=== PATIENT | male | born 1990 | race Caucasian/White ===

== ENCOUNTER 2017-03-19 18:47 | Emergency (ER) | payer MEDICAID, SELFPAY | END 2017-03-19 20:27 | disposition home or self-care (01) | PROVIDERS: Emergency Provider Emergency Medicine; Visit Provider Emergency Medicine | DX: J20.9 Acute bronchitis, unspecified (principal); Z87.891 Personal history of nicotine dependence | CPT/HCPCS: 99282 ==

== ENCOUNTER → 2017-05-01 14:00 | Outpatient (REF) | payer MEDICAID, SELFPAY ==
[2017-05-01 18:33] LABS: Basophils # 0.1 K/mm3 (0-0.2); Basophils % 0.7 % (0.1-2.0); Eosinophils # 0.1 K/mm3 (0.0-0.4); Eosinophils % 0.7 % (0.1-12.0); Hematocrit 46.5 % (42.0-52.0); Hemoglobin 15.5 g/dL (14.1-18.0); Lymphocytes # 1.7 K/mm3 (0.7-4.5); Lymphocytes % 21.9 K/mm3 (10-50); Mean Corpuscular HGB Conc 33.3 g/dL (31.8-35.4); Mean Corpuscular Hemoglobin 30.3 pg (27.0-31.2); Mean Corpuscular Volume 90.9 fl (80-94); Mean Platelet Volume 9.3 fl (7.4-10.4); Monocytes # 0.5 K/mm3 (0.1-1.0); Monocytes % 6.3 % (1.7-9.3); Neutrophils # 5.5 K/mm3 (1.8-7.8); Neutrophils % 70.4 % (37.0-80.0); Platelet Count 269 K/mm3 (142-424); Red Blood Count 5.12 M/mm3 (4.60-6.20); Red Cell Distribution Width 12.9 % (11.5-17.5); White Blood Count 7.8 K/mm3 (4.8-10.8)
[2017-05-01 19:08] LABS: Alanine Aminotransferase 63 U/L (12-78); Albumin Level 4.1 gm/dL (3.4-5.0); Albumin/Globulin Ratio 1.2 (1.1-1.8); Alkaline Phosphatase 89 U/L (46-116); Anion Gap 14.3 mEq/L (5-15); Aspartate Amino Transferase 30 U/L (15-37); Bilirubin,Total 0.4 mg/dL (0.2-1.0); Blood Urea Nitrogen 14 mg/dL (7-18); Calcium 9.2 mg/dL (8.5-10.1); Carbon Dioxide 28 mmol/L (21.0-32.0); Chloride 103 mmol/L (98-107); Chol/HDL Ratio 4.6 (1-3.5); Cholesterol 197 mg/dL (140-200); Estimated Glomerular Filt Rate 92 ml/min (>60); GFR (African American) 111 ML/MIN (>60); Globulin 3.4 gm/dl (1.3-3.2); Glucose 102 mg/dL (74-106); HDL Cholesterol 43 mg/dL (27-67); LDL Cholesterol 96 mg/dL (0-130); Potassium 4.3 mmoL/L (3.5-5.1); Sodium 141 mmol/L (136-145); T4 (Thyroxine) 8.3 ug/dl (4.7-13.3); Thyroid Stimulating Hormone 0.91 uIU/ml (0.358-3.740); Total Protein,Serum 7.5 gm/dL (6.4-8.2); Triglycerides 289 mg/dL (30-200); VLDL Cholesterol 58 mg/dL (0-40)
[2017-05-03 18:28] LABS: Vitamin D 25 Hydroxy 33.8 ng/mL (30.0-100.0)
== END ==
LOC: LAB 14:00
PROVIDERS: Visit Provider Physician Assistant
DX: R68.89 Other general symptoms and signs (principal); E66.9 Obesity, unspecified; Z68.43 Body mass index [BMI] 50.0-59.9, adult
CPT/HCPCS: 80053; 80061; 82652; 84436; 84443; 85025

== ENCOUNTER → 2017-12-23 11:19 | Outpatient (CLI) | payer MEDICAID, SELFPAY ==
--- NOTE | 2017-12-23 11:22 | XR_ITS ---
XR hip RT 2-3V w/pelvis HISTORY: ITS.REASON: Right hip pain ORDERING PHYSICIAN: AUDREY Mohamud PATIENT AGE: 27 years COMPARISON: None FINDINGS: No fracture or dislocation is evident. No significant degenerative change. No lytic or blastic change. Unremarkable soft tissues IMPRESSION: Negative hip
== END ==
PROVIDERS: PCP Physician Assistant; Visit Provider Physician Assistant
DX: M25.551 Pain in right hip (principal)
CPT/HCPCS: 73502

== ENCOUNTER → 2018-03-24 13:53 | Outpatient (CLI) | payer MEDICAID, SELFPAY ==
--- NOTE | 2018-03-24 13:56 | XR_ITS ---
XR chest 2V HISTORY: ITS.REASON: wheezing ORDERING PHYSICIAN: Nikole Alcazar PATIENT AGE: 27 years Technique: PA and lateral chest 12 COMPARISON October 2017 2 view chest & 03-24 2 view chest. FINDINGS: No discrete acute findings. Today's chest film very similar to October 2017 . No convincing pneumonia. At most only question some slight additional vertical oriented atelectasis at the right infrahilar region which may slightly accentuated vascular markings here. However I see no convincing infiltrate. No focal pneumonia. The heart is normal in size with alex and mediastinal structures satisfactory. No no pleural effusion. No pneumothorax. Normal pulmonary vascularity. Chest wall T-spine intact. IMPRESSION:------ Nothing definitely acute. Basically stable chest.
== END ==
PROVIDERS: PCP Nurse Practitioner Family; Visit Provider Nurse Practitioner Family
DX: R05 Cough (principal); R06.2 Wheezing
CPT/HCPCS: 71046

== ENCOUNTER → 2018-11-26 11:19 | Outpatient (CLI) | payer SELFPAY | PROVIDERS: Visit Provider Nurse Practitioner Family | DX: Z02.4 Encounter for examination for driving license (principal) ==

== ENCOUNTER 2019-09-02 20:51 | Emergency (ER) | payer MEDICAID, SELFPAY ==
[2019-09-02 20:52] VITALS: BP 144/80; PULSE 88; RESP 16; TEMP 36.6; O2SAT 96; BMI 55.7
--- NOTE | 2019-09-02 21:20 | CT_ITS ---
PROCEDURE: CT ABDOMEN PELVIS W CON CLINICAL INDICATION: RUQ pain Right upper quadrant pain COMPARISON: No exams were available for comparison TECHNIQUE: IV Contrast: 75ML OPTIRAY 350 Oral Contrast none Axial images obtained with sagittal and coronal reformats. All CT scans at the facility use one or more dose reduction, viz: automated exposure control, ma/kV adjustment per patient size (including targeted exams where dose is matched to indication, i.e. head), or iterative reconstruction technique. FINDINGS: LOWER THORAX: There is a calcified granuloma in the right middle lobe. ABDOMEN & PELVIS: There is diffuse fatty liver infiltration. No focal liver lesion is evident. The spleen, adrenal glands, pancreas, and kidneys have an unremarkable appearance. There is a small umbilical hernia containing fat. No evidence of appendicitis or diverticulitis. No intestinal obstruction or free air. No pelvic mass or abnormal fluid collection. No acute bony anomalies. IMPRESSION: No acute abdominal or pelvic findings Dictated by: Manoj Medina MD 09/03/2019 06:20 Electronically signed by Manoj Medina MD in [place] 09/03/2019 06:20
--- NOTE | 2019-09-02 21:22 | HMH.EDNVD ---
ED Disposition Clinical Impression: BMI 50.0-59.9, adult Abdominal pain Qualifiers: Abdominal location: right upper quadrant Qualified Code(s): R10.11 - Right upper quadrant pain Disposition: Home, Self-Care Condition on Discharge: Good Instructions: DI for Acute Abdomen Additional Instructions: see pcp for follow up Referrals: Provider,Referral, [Primary Care Provider] - - Critical Care Critical Care Time: No Attestation: On 09/02/19, the high probability of a clinically significant, sudden or life threatening deterioration of the following system(s) required my full and direct attention, intervention and personal management. The time I documented below is in addition to time spent performing reported procedures but includes the following listed in this critical care notation. Medical Decision Making - Medical Records Medical records reviewed: Yes: I reviewed the patient's medical records. - Jm Inquiry Pt receiving controlled substance: No Vital Signs: 09/02/19 20:52 Temperature 97.8 F Temperature Source Oral Pulse Rate [Left Radial] 88 Respiratory Rate 16 Blood Pressure [Right Arm] 144/80 H Blood Pressure Mean [Right Arm] 101 Blood Pressure Source [Right Arm] Automatic Cuff Blood Pressure Position [Right Arm] Sitting 02 Sat by Pulse Oximetry 96 Oxygen Delivery Method Room Air - Lab Data Lab results reviewed: Yes: I reviewed the patient's lab results. Lab Results 09/02/19 21:15: WBC 8.3, RBC 5.17, Hgb 15.9, Hct 46.9, MCV 90.8, MCH 30.8, MCHC 34.0, RDW 13.3, Plt Count 244, MPV 8.8, Neut % (Auto) 56.9, Lymph % (Auto) 34.6, [place] % (Auto) 5.1, Eos % (Auto) 2.5, Baso % (Auto) 1.0, Neut # (Auto) 4.7, Lymph # (Auto) 2.9, [place] # (Auto) 0.4, Eos # (Auto) 0.2, Baso # (Auto) 0.1 09/02/19 21:15: Sodium 139, Potassium 4.0, Chloride 105, Carbon Dioxide 25, Anion Gap 13.0, BUN 13, Creatinine 0.80, Estimated Creat Clear 149, Estimated GFR 117, Est GFR ( Amer) 141, Glucose 100, Calcium 9.6, Total Bilirubin 0.6, AST 44, ALT 83 H, Alkaline Phosphatase 90, Total Protein 7.2, Albumin 4.2, Globulin 3.0, Albumin/Globulin Ratio 1.4, Amylase 84, Lipase 41 Result diagrams: 09/02/19 21:15 09/02/19 21:15 Orders (Tests/Meds): ED MEDICATIONS Generic Name Dose Route Start Last Admin Trade Name Freq PRN Reason Stop Dose Admin Sodium Chloride 1,000 mls @ 999 mls/hr 09/02/19 21:30 09/02/19 21:47 Sod Chlor 0.9% 1000ml Bag IV 09/02/19 22:30 999 mls/hr .Q1H1M ALFREDO Administration Discontinued Medications Generic Name Dose Route Start Last Admin Trade Name Freq PRN Reason Stop Dose Admin Ioversol 75 ml 09/02/19 21:41 09/02/19 21:42 Rad-Optiray 350 100ml Vial IV 09/02/19 21:42 75 ml ONCE ONE Administration Protocol Ketorolac Tromethamine 30 mg 09/02/19 21:23 09/02/19 21:47 Toradol 30mg/Ml Vial IV 09/02/19 21:24 30 mg ONCE ONE Administration Ondansetron HCl 4 mg 09/02/19 21:23 09/02/19 21:47 Zofran 4mg/2ml Vial IV 09/02/19 21:24 4 mg ONCE ONE Administration Sodium Chloride 10 ml 09/02/19 21:41 09/02/19 21:42 Rad-Saline Flush 10ml Syringe IV 09/02/19 21:42 10 ml ONCE ONE Administration ORDERS Category Date Time Status CT abdomen pelvis w con Stat Cat Scan 09/02/19 21:20 Taken Urinalysis and Microscopic Stat Lab 09/02/19 21:21 Ordered - CT Data CT Scan: Abdomen, Pelvis Time Received: 21:[address] Reviewed: Yes: I have viewed the radiologist's interpretation Preliminary Findings: Normal/NAD Nausea/Vomiting/Diarrhea HPI - General Chief complaint: Abdominal Pain Stated complaint: Pain Right upper side Time Seen by Provider: 09/02/19 21:23 Mode of Arrival: Ambulatory Source of Information: Patient, Spouse, Medical Record Limitations: No Limitations Description of Symptoms (Recalled from ER Triage Doc. by RN): pt c/o intermitten RUQ pain for over a year but came back today. pt describes it as a dull pain thats tender on palpati
[2019-09-02 21:30] LABS: Basophils # 0.1 K/mm3 (0-0.2); Eosinophils # 0.2 K/mm3 (0.0-0.4); Eosinophils % 2.5 % (0.1-12.0); Hematocrit 46.9 % (42.0-52.0); Hemoglobin 15.9 g/dL (14.1-18.0); Lymphocytes # 2.9 K/mm3 (0.7-4.5); Lymphocytes % 34.6 % (10-50); Mean Corpuscular Hemoglobin 30.8 pg (27.0-31.2); Mean Corpuscular Volume 90.8 fl (80-94); Mean Platelet Volume 8.8 fl (7.4-10.4); Monocytes # 0.4 K/mm3 (0.1-1.0); Monocytes % 5.1 % (1.7-9.3); Neutrophils # 4.7 K/mm3 (1.8-7.8); Neutrophils % 56.9 % (37.0-80.0); Platelet Count 244 K/mm3 (142-424); Red Blood Count 5.17 M/mm3 (4.60-6.20); Red Cell Distribution Width 13.3 % (11.5-17.5); White Blood Count 8.3 K/mm3 (4.8-10.8)
[2019-09-02 21:39] LABS: Chloride 105 mmol/L (98-107)
[2019-09-02 21:40] LABS: Sodium 139 mmol/L (136-145)
[2019-09-02 21:42] LABS: Alanine Aminotransferase 83 U/L (12-78); Alkaline Phosphatase 90 U/L (38-126); Amylase 84 U/L (30-110); Aspartate Amino Transferase 44 U/L (17-59); Bilirubin,Total 0.6 mg/dl (0.2-1.3); Blood Urea Nitrogen 13 mg/dl (9-20); Carbon Dioxide 25 mmol/L (22.0-30.0); Creatinine Clearance Estimated 149 mL/min (50-200); Estimated Glomerular Filt Rate 117 ml/min (>60); GFR (African American) 141 ML/MIN (>60)
[2019-09-02 21:43] LABS: Albumin Level 4.2 g/dl (3.5-5.0); Albumin/Globulin Ratio 1.4 (1.1-1.8); Calcium 9.6 mg/dl (8.4-10.2); Glucose 100 mg/dl (74-100); Lipase 41 U/L (23-300); Total Protein,Serum 7.2 g/dl (6.3-8.2)
--- NOTE | 2019-09-02 21:43 | PC.NURSE ---
pt back from radiology
[2019-09-02 22:20] VITALS: BP 143/74; PULSE 78; RESP 14; TEMP 36.6; O2SAT 98
== END 2019-09-02 22:22 | disposition home or self-care (01) ==
PROVIDERS: Emergency Provider Emergency Medicine
DX: R10.11 Right upper quadrant pain (principal); F17.210 Nicotine dependence, cigarettes, uncomplicated
CPT/HCPCS: 74177; 80053; 82150; 83690; 85025; 96365; 96375; 99283; J2405; Q9967

== ENCOUNTER 2020-09-16 18:41 | Emergency (ER) | payer SELFPAY ==
[2020-09-16] VITALS (7 sets, daily range): BP systolic 110–131; BP diastolic 65–75; PULSE 65–74; RESP 12–16; TEMP 36.6–36.7; O2SAT 95–98; BMI 47.4
--- NOTE | 2020-09-16 18:45 | XR_ITS ---
PROCEDURE INFORMATION: Exam: XR Chest Exam date and time: 09/16/20 06:45 PM Age: 30 years old Clinical indication: Cough and shortness of breath TECHNIQUE: Imaging protocol: XR of the chest. Views: 1 view. COMPARISON: CR XR CHEST 2V 02/07/19 05:25 PM FINDINGS: Lungs: Unremarkable. No consolidation. Pleural spaces: Unremarkable. No pleural effusion. No pneumothorax. Heart/Mediastinum: Unremarkable. No cardiomegaly. Bones/joints: Unremarkable. IMPRESSION: No acute findings.
--- NOTE | 2020-09-16 19:05 | ECG_ITS ---
APPROVED REPORT Exam: Resting ECG HR:77 bpm ECG Measurements Heart Rate 77 AXES OR 154 P 57 QRSd 86 QRS 8 QT 386 T 26 QTc 436 Conclusion Normal sinus rhythm Normal ECG Electronically signed by : Curtis Baugh, 09/17/2020 08:16:07
--- NOTE | 2020-09-16 19:16 | HMH.EDCP ---
ED Disposition Condition on Discharge: Fair - Critical Care Critical Care Time: No <Zeyad Blandon - Last Filed: 09/16/20 19:42> <Gómez Cruz - Last Filed: 09/16/20 20:40> Clinical Impression: Nonspecific chest pain Disposition: Home, Self-Care Instructions: DI for Atypical Chest Pain Additional Instructions: see pco for follow up Referrals: Provider,Referral, MD [Primary Care Provider] - Attestation: On 09/16/20, the high probability of a clinically significant, sudden or life threatening deterioration of the following system(s) required my full and direct attention, intervention and personal management. The time I documented below is in addition to time spent performing reported procedures but includes the following listed in this critical care notation. Medical Decision Making - Medical Records Medical records reviewed: Yes: I reviewed the patient's medical records. - Jm Inquiry Pt receiving controlled substance: No - Lab Data Result diagrams: 09/16/20 19:02 09/16/20 19:02 - ECG Data Tracing #1 ECG initial impression date: 09/16/20 ECG initial impression time: 18:35 - Reevaluation(s) Time: 19:42 <JamiaZeyad - Last Filed: 09/16/20 19:42> - Lab Data Lab results reviewed: Yes: I reviewed the patient's lab results. Result diagrams: 09/16/20 19:02 09/16/20 19:02 - Radiology Data #1 Image(s): Chest Image Reviewed: Yes I reviewed the patient's radiology image Preliminary Findings: Normal/NAD - CT Data CT Scan: Chest Time Received: 20:[address] Reviewed: Yes: I have viewed the radiologist's interpretation Preliminary Findings: Normal/NAD <Gómez Cruz - Last Filed: 09/16/20 20:40> Vital Signs: 09/16/20 18:42 09/16/20 19:15 09/16/20 19:20 Temperature 98 F Temperature Source Oral Pulse Rate 68 69 Pulse Rate [Radial] 73 Respiratory Rate 16 12 14 Blood Pressure 124/66 124/66 Blood Pressure [Right Arm] 119/65 Blood Pressure Mean 85 Blood Pressure Mean [Right Arm] 83 Blood Pressure Position [Right Arm] Sitting 02 Sat by Pulse Oximetry 98 95 97 Oxygen Delivery Method Room Air 09/16/20 19:30 09/16/20 20:07 09/16/20 20:31 Temperature Temperature Source Pulse Rate 65 74 68 Pulse Rate [Radial] Respiratory Rate 16 16 16 Blood Pressure 119/67 131/75 110/71 Blood Pressure [Right Arm] Blood Pressure Mean 79 91 84 Blood Pressure Mean [Right Arm] Blood Pressure Position [Right Arm] 02 Sat by Pulse Oximetry 97 97 97 Oxygen Delivery Method - Lab Data Lab Results 09/16/20 19:02: WBC 8.3, RBC 5.26, Hgb 16.3, Hct 46.3, MCV 88.0, MCH 31.0, MCHC 35.2, RDW 12.9, Plt Count 209, MPV 9.1, Neut % (Auto) 68.9, Lymph % (Auto) 23.7, [place] % (Auto) 6.0, Eos % (Auto) 0.8, Baso % (Auto) 0.5, Neut # (Auto) 5.7, Lymph # (Auto) 2.0, [place] # (Auto) 0.5, Eos # (Auto) 0.1, Baso # (Auto) 0.1 09/16/20 19:02: D-Dimer 0.60 H 09/16/20 19:02: Sodium 137, Potassium 3.8, Chloride 107, Carbon Dioxide 24, Anion Gap 9.8, BUN 13, Creatinine 0.70, Estimated Creat Clear 167, Estimated GFR 134, Est GFR ( Amer) 162, Glucose 85, Calcium 9.0, Total Bilirubin 0.9, AST 28, ALT 42, Alkaline Phosphatase 89, Troponin I < 0.01, Total Protein 7.1, Albumin 4.3, Globulin 2.8, Albumin/Globulin Ratio 1.5 Orders (Tests/Meds): ED MEDICATIONS Discontinued Medications Generic Name Dose Route Start Last Admin Trade Name Freq PRN Reason Stop Dose Admin Iopamidol 70 ml 09/16/20 19:57 09/16/20 19:58 Iopamidol-370 (76%);100ml Bottle IV 09/16/20 19:58 70 ml ONCE ONE Administration Ketorolac Tromethamine 30 mg 09/16/20 18:45 09/16/20 19:06 Ketorolac 30mg/Ml Vial IV 09/16/20 18:46 30 mg ONCE ONE Administration Sodium Chloride 50 ml 09/16/20 19:57 09/16/20 19:58 0.9 % Sodium Chloride 50 Ml Vial IV 09/16/20 19:58 50 ml ONCE ONE Administration Sodium Chloride 10 ml 09/16/20 19:57 09/16/20 19:58 Sodium Chlor
[2020-09-16 19:21] LABS: Alanine Aminotransferase 42 U/L (12-78); Albumin Level 4.3 g/dl (3.5-5.0); Albumin/Globulin Ratio 1.5 (1.1-1.8); Alkaline Phosphatase 89 U/L (38-126); Anion Gap 9.8 mEq/L (5-15); Aspartate Amino Transferase 28 U/L (17-59); Bilirubin,Total 0.9 mg/dl (0.2-1.3); Blood Urea Nitrogen 13 mg/dl (9-20); Carbon Dioxide 24 mmol/L (22.0-30.0); Chloride 107 mmol/L (98-107); Creatinine Clearance Estimated 167 mL/min (50-200); Estimated Glomerular Filt Rate 134 ml/min (>60); GFR (African American) 162 ML/MIN (>60); Globulin 2.8 g/dL (1.3-3.2); Glucose 85 mg/dl (74-100); Potassium 3.8 mmoL/L (3.5-5.1); Sodium 137 mmol/L (136-145); Total Protein,Serum 7.1 g/dl (6.3-8.2)
[2020-09-16 19:28] LABS: Basophils # 0.1 K/mm3 (0-0.2); Basophils % 0.5 % (0.1-2.0); Eosinophils # 0.1 K/mm3 (0.0-0.4); Eosinophils % 0.8 % (0.1-12.0); Hematocrit 46.3 % (42.0-52.0); Hemoglobin 16.3 g/dL (14.1-18.0); Lymphocytes % 23.7 % (10-50); Mean Corpuscular HGB Conc 35.2 g/dL (31.8-35.4); Mean Platelet Volume 9.1 fl (7.4-10.4); Monocytes # 0.5 K/mm3 (0.1-1.0); Neutrophils # 5.7 K/mm3 (1.8-7.8); Neutrophils % 68.9 % (37.0-80.0); Platelet Count 209 K/mm3 (142-424); Red Blood Count 5.26 M/mm3 (4.60-6.20); Red Cell Distribution Width 12.9 % (11.5-17.5); White Blood Count 8.3 K/mm3 (4.8-10.8)
--- NOTE | 2020-09-16 19:28 | CT_ITS ---
PROCEDURE INFORMATION: Exam: CTA Chest With Contrast Exam date and time: 09/16/20 07:28 PM Age: 30 years old Clinical indication: Cough and dyspnea; Additional info: Chest pain TECHNIQUE: Imaging protocol: Computed tomographic angiography of the chest with contrast. 3D rendering (Not supervised by radiologist): MIP and/or 3D reconstructed images were created by the technologist. Radiation optimization: All CT scans at this facility use at least one of these dose optimization techniques: automated exposure control; mA and/or kV adjustment per patient size (includes targeted exams where dose is matched to clinical indication); or iterative reconstruction. Contrast material: ISOVUE 370; Contrast volume: 70 ml; Contrast route: INTRAVENOUS (IV); COMPARISON: CR XR CHEST PORTABLE 09/16/20 07:01 PM FINDINGS: Pulmonary arteries: Normal. No pulmonary emboli. Aorta: Unremarkable. No aortic aneurysm. No aortic dissection. Lungs: Unremarkable. No consolidation. No masses. Pleural spaces: Unremarkable. No pneumothorax. No pleural effusion. Heart: Unremarkable. No cardiomegaly. No pericardial effusion. Lymph nodes: Unremarkable. No enlarged lymph nodes. Bones/joints: Unremarkable. No acute fracture. Soft tissues: Unremarkable. IMPRESSION: No acute findings.
[2020-09-16 19:41] LABS: Troponin I < 0.01 ng/ml (0.00-0.034)
== END 2020-09-16 20:52 | disposition home or self-care (01) ==
PROVIDERS: Emergency Provider Emergency Medicine
DX: R07.9 Chest pain, unspecified (principal); F17.210 Nicotine dependence, cigarettes, uncomplicated
CPT/HCPCS: 71045; 71275; 80053; 84484; 85025; 85378; 93005; 96374; 99282; Q9967

== ENCOUNTER 2020-11-29 23:11 | Emergency (ER) | payer SELFPAY ==
[2020-11-29 23:18] VITALS: BP 123/81; PULSE 73; RESP 16; TEMP 37; O2SAT 98; BMI 46.7
[2020-11-29 23:22] VITALS: BMI 40.6
[2020-11-29 23:25] VITALS: BP 126/80; PULSE 80; RESP 19; TEMP 37; O2SAT 96
--- NOTE | 2020-11-29 23:26 | HMH.EDSKAF ---
ED Disposition Clinical Impression: Cellulitis Qualifiers: Site of cellulitis: trunk Site of cellulitis of trunk: chest wall Qualified Code(s): L03.313 - Cellulitis of chest wall Disposition: Home, Self-Care Condition on Discharge: Good Instructions: DI for Skin Abscess Additional Instructions: see pcp for follow up and use meds Prescriptions: Sulfamethoxazole/Trimethoprim [Bactrim DS tablet] 1 each PO BID #20 tab Transmission Status: Pending to [facility] clindamycin HCL [Clindamycin HCl] 300 mg PO TID #30 cap Transmission Status: Pending to [facility] Meloxicam [Mobic 15 mg tab] 15 mg PO DAILY #10 tab Transmission Status: Pending to [facility] - Critical Care Critical Care Time: No Attestation: On , the high probability of a clinically significant, sudden or life threatening deterioration of the following system(s) required my full and direct attention, intervention and personal management. The time I documented below is in addition to time spent performing reported procedures but includes the following listed in this critical care notation. Medical Decision Making - Medical Records Medical records reviewed: Yes: I reviewed the patient's medical records. - Jm Inquiry Pt receiving controlled substance: No Vital Signs: 11/29/20 23:18 Temperature 98.6 F Temperature Source Oral Pulse Rate [Right Brachial] 73 Respiratory Rate 16 Blood Pressure [Right Arm] 123/81 Blood Pressure Mean [Right Arm] 95 Blood Pressure Source [Right Arm] Automatic Cuff Blood Pressure Position [Right Arm] Sitting 02 Sat by Pulse Oximetry 98 Oxygen Delivery Method Room Air Orders (Tests/Meds): ED MEDICATIONS Discontinued Medications Generic Name Dose Route Start Last Admin Trade Name Deidre PRN Reason Stop Dose Admin Indomethacin 25 mg 11/29/20 23:22 Indomethacin 25 Mg Capsule PO 11/29/20 23:23 ONCE ONE Trimethoprim/Sulfamethoxazole 1 each 11/29/20 23:22 Sulfa/Trimethoprim 1 Tablet PO 11/29/20 23:23 ONCE ONE Medical Decision Narrative: prob mrsa - no clinical indications for i/d Skin/Abscess/FB HPI - General Chief complaint: Skin/Abscess/Foreign Body Stated complaint: Knot on left side ? spider bite Time Seen by Provider: 11/29/20 23:20 Mode of Arrival: Family Vehicle Source of Information: Patient, Medical Record Limitations: No Limitations Description of Symptoms (Recalled from ER Triage Doc. by RN): pt developed a small area about the size of a quarter that is reddened and swollen and warm to touch. pt states its been going on for two days. denies any treatment. rates pain 11/14. - History of Present Illness HPI narrative: small indurated tender area lt costal region over the last few days MD complaint: abscess/boil Onset (ago): day(s) Tetanus up to date: unsure Location: chest Severity: moderate Associated symptoms: denies other symptoms Treatments prior to arrival: none - Related Data Previous Rx's Medication Instructions Recorded Meloxicam [Mobic 15 mg tab] 15 mg PO DAILY #10 tab 11/29/20 Sulfamethoxazole/Trimethoprim 1 each PO BID #20 tab 11/29/20 [Bactrim DS tablet] clindamycin HCL [Clindamycin HCl] 300 mg PO TID #30 cap 11/29/20 Allergies Allergy/AdvReac Type Severity Reaction Status Date / Time Penicillins [PENICILLINS] Allergy Mild Verified 03/24/18 13:04 cephalexin [From Keflex] Allergy Verified 11/29/20 23:26 [facility] History - Hepatitis A Screen Drug use history?: No High risk sexual behaviors?: No History of sexually transmitted infection?: No Currently employed?: No Childcare worker?: No Do you have indoor plumbing?: Yes Do you have electricity?: Yes Attestation statement:: This patient has been screened for Hepatitis A risk factors. I have reviewed the patient's past medical history: Yes Medical History: Denies:: Cancer, Diabetes Mellitus Type 1, Diabetes Mellitus Type 2, MRSA Laterality [place]
--- NOTE | 2020-11-29 23:35 | PC.NURSE ---
Paged Dr. Ibarra for Dr. Cruz
== END 2020-11-29 23:44 | disposition home or self-care (01) ==
PROVIDERS: Emergency Provider Emergency Medicine
DX: L03.313 Cellulitis of chest wall (principal)
CPT/HCPCS: 99281

== ENCOUNTER 2020-12-08 23:32 | Emergency (ER) | payer SELFPAY ==
[2020-12-09 00:13] VITALS: BP 134/85; PULSE 76; RESP 18; TEMP 36.8; O2SAT 99; BMI 46.0
--- NOTE | 2020-12-09 02:24 | HMH.EDSKAF ---
ED Disposition Clinical Impression: Cellulitis Qualifiers: Site of cellulitis: trunk Site of cellulitis of trunk: abdominal wall Qualified Code(s): L03.311 - Cellulitis of abdominal wall Disposition: Home, Self-Care Condition on Discharge: Good Instructions: Cellulitis Additional Instructions: keep clean and place ont bid Referrals: Provider,Referral, [Primary Care Provider] - - Critical Care Critical Care Time: No Attestation: On 12/08/20, the high probability of a clinically significant, sudden or life threatening deterioration of the following system(s) required my full and direct attention, intervention and personal management. The time I documented below is in addition to time spent performing reported procedures but includes the following listed in this critical care notation. Medical Decision Making - Medical Records Medical records reviewed: Yes: I reviewed the patient's medical records. - Jm Inquiry Pt receiving controlled substance: No Vital Signs: 12/09/20 00:13 Temperature 98.3 F Temperature Source Oral Pulse Rate [Right] 76 Respiratory Rate 18 Blood Pressure [Right Arm] 134/85 Blood Pressure Mean [Right Arm] 101 Blood Pressure Source [Right Arm] Automatic Cuff Blood Pressure Position [Right Arm] Sitting 02 Sat by Pulse Oximetry 99 Oxygen Delivery Method Room Air Skin/Abscess/FB HPI - General Chief complaint: Skin/Abscess/Foreign Body Stated complaint: Abcess on left side abdomen;Dizzy Time Seen by Provider: 12/09/20 02:00 Mode of Arrival: Ambulatory Source of Information: Patient, Medical Record Limitations: No Limitations Description of Symptoms (Recalled from ER Triage Doc. by RN): Pt has been seen in this ER for same scab on left side, he states he did not f/u because he has no money. Pt has a scab on left flank with no obvious drainage. - History of Present Illness HPI narrative: healing place on lt abd - no abscess or drainage complaint: abscess/boil Onset (ago): day(s) Tetanus up to date: unsure Location: chest Severity: moderate Associated symptoms: denies other symptoms Treatments prior to arrival: none - Related Data Previous Rx's Medication Instructions Recorded Meloxicam [Mobic 15 mg tab] 15 mg PO DAILY #10 tab 11/29/20 Sulfamethoxazole/Trimethoprim 1 each PO BID #20 tab 11/29/20 [Bactrim DS tablet] clindamycin HCL [Clindamycin HCl] 300 mg PO TID #30 cap 11/29/20 Allergies Allergy/AdvReac Type Severity Reaction Status Date / Time Penicillins [PENICILLINS] Allergy Mild Verified 03/24/18 13:04 cephalexin [From Keflex] Allergy Verified 11/29/20 23:26 [facility] History - Hepatitis A Screen Drug use history?: No High risk sexual behaviors?: No History of sexually transmitted infection?: No Currently employed?: No Childcare worker?: No Do you have indoor plumbing?: Yes Do you have electricity?: Yes Attestation statement:: This patient has been screened for Hepatitis A risk factors. I have reviewed the patient's past medical history: Yes Medical History: Denies:: Cancer, Diabetes Mellitus Type 1, Diabetes Mellitus Type 2, MRSA Laterality Cases: Bilateral: Tonsillectomy Amputation: No Fractures: No - Social History Smoking Status: Current every day smoker Tobacco Type: cigarettes # Packs/Day (cigarettes): 2 #Yrs smoked (if former smoker): 6 Alcohol Intake: never Substance Use Type: denies use Occupational Status: unemployed Housing: house Family Hx:: Diabetes ROS Obtained: Yes All systems reviewed & no additional complaints - Constitutional Constitutional: Denies fever(s) - Eyes Eyes: Denies change in vision - ENT Ears, Nose, Mouth, and Throat: Denies sore throat - Cardiovascular Cardiovascular: Denies chest pain - Respiratory Respiratory: Denies cough - Gastrointestinal Gastrointestingal: Denies: abdominal pain - Genitourinary Male Genitourinary: Denies flank pain - Musculoskeletal Musculoskeletal
[2020-12-09 02:36] VITALS: BP 136/62; PULSE 72; RESP 18; TEMP 36.8; O2SAT 99
== END 2020-12-09 02:38 | disposition home or self-care (01) ==
PROVIDERS: Emergency Provider Emergency Medicine
DX: L03.311 Cellulitis of abdominal wall (principal); F17.210 Nicotine dependence, cigarettes, uncomplicated; Z88.0 Allergy status to penicillin
CPT/HCPCS: 99281

== ENCOUNTER 2021-02-10 23:12 | Emergency (ER) | payer SELFPAY ==
[2021-02-10 23:13] VITALS: BP 147/85; PULSE 87; RESP 16; TEMP 37; O2SAT 98; BMI 46.0
--- NOTE | 2021-02-10 23:31 | XR_ITS ---
PROCEDURE INFORMATION: Exam: XR Chest Exam date and time: 02/10/2021 11:31 PM Age: 30 years old Clinical indication: Cough TECHNIQUE: Imaging protocol: XR of the chest. Views: 2 views. COMPARISON: CR XR CHEST PORTABLE 09/16/2020 7:01 PM FINDINGS: Lungs: Unremarkable. No consolidation. Pleural spaces: Unremarkable. No pleural effusion. No pneumothorax. Heart/Mediastinum: Unremarkable. No cardiomegaly. Bones/joints: Unremarkable. IMPRESSION: No acute findings.
[2021-02-10 23:42] LABS: Coronavirus 19, PCR Not Detected (NotDetected); Influenza A, PCR Not Detected (NotDetected); Influenza B, PCR Not Detected (NotDetected)
[2021-02-11 01:22] VITALS: BP 141/80; PULSE 81; RESP 16; TEMP 36.8; O2SAT 99
--- NOTE | 2021-02-11 01:22 | HMH.EDURI ---
ED Disposition Clinical Impression: Encounter for screening laboratory testing for COVID-19 virus, Bronchitis Disposition: Home, Self-Care Condition on Discharge: Good Instructions: DI for Acute Bronchitis Additional Instructions: fluids and see pcp for follow up Prescriptions: Azithromycin [Zithromax 250mg tab] 250 mg PO DIRECTED #6 tab Transmission Status: Pending to [id number] Referrals: Provider,Referral, MD [Primary Care Provider] - Forms: Work/School Release - Critical Care Critical Care Time: No Attestation: On 02/10/21, the high probability of a clinically significant, sudden or life threatening deterioration of the following system(s) required my full and direct attention, intervention and personal management. The time I documented below is in addition to time spent performing reported procedures but includes the following listed in this critical care notation. Medical Decision Making - Medical Records Medical records reviewed: Yes: I reviewed the patient's medical records. - Jm Inquiry Pt receiving controlled substance: No Vital Signs: 02/10/21 23:13 Temperature 98.6 F Temperature Source Oral Pulse Rate [Right Radial] 87 Respiratory Rate 16 Blood Pressure [Right Arm] 147/85 H Blood Pressure Mean [Right Arm] 105 Blood Pressure Source [Right Arm] Automatic Cuff Blood Pressure Position [Right Arm] Sitting 02 Sat by Pulse Oximetry 98 Oxygen Delivery Method Room Air - Lab Data Lab results reviewed: Yes: I reviewed the patient's lab results. Lab Results 02/10/21 23:34: SARS-CoV-2 (PCR) Not detected, Influenza A Untype (PCR) Not detected, Influenza Type B (PCR) Not detected Orders (Tests/Meds): ORDERS Category Date Time Status Chest XR 2 view (NOT portable) [XR chest 2V] Stat Exams 02/10/21 23:31 Taken - Radiology Data #1 Image(s): Chest Image Reviewed: Yes I reviewed the patient's radiology image Preliminary Findings: Normal/NAD Medical Decision Narrative: neg covid-19 and has bronchitis by clinical URI/Sore Throat HPI - General Chief Complaint: Upper Respiratory Infection Stated Complaint: Sore throat,cough,SOA Time Seen by Provider: 02/11/21 00:00 Mode of Arrival: Ambulatory Source of Information: Patient, Medical Record Limitations: No Limitations Description of Symptoms (Recalled from ER Triage Doc. by RN): Pt reports 2-3 days of cough, sore throat, and productive cough. Denies fevers. Denies chest pain or soa. He states he has had recent exposure to COVID and just wants to know if he has it. Pt placed in isolation precautions pending swab. - History of Present Illness HPI Narrative: prod cough and sore throat - exposed to covid-19 Complaint: cough, sore throat Onset (ago): day(s) Duration: intermittent Severity: moderate Relieving factors: OTC cold medicine Able to tolerate fluids by mouth: Yes Context: sick contacts Associated symptoms: denies other symptoms Treatments prior to arrival: none - Related Data Previous Rx's Medication Instructions Recorded Azithromycin [Zithromax 250mg 250 mg PO DIRECTED #6 tab 02/11/21 tab] Allergies Allergy/AdvReac Type Severity Reaction Status Date / Time Penicillins [PENICILLINS] Allergy Mild Verified 03/24/18 13:04 cephalexin [From Keflex] Allergy Verified 11/29/20 23:26 [facility] History - Hepatitis A Screen Drug use history?: No High risk sexual behaviors?: No History of sexually transmitted infection?: No Currently employed?: No Childcare worker?: No Do you have indoor plumbing?: Yes Do you have electricity?: Yes Attestation statement:: This patient has been screened for Hepatitis A risk factors. I have reviewed the patient's past medical history: Yes Medical History: Denies:: Cancer, Diabetes Mellitus Type 1, Diabetes Mellitus Type 2, MRSA Laterality Cases: Bilateral: Tonsillectomy Amputation: No Fractures: No - Social History Smokin
== END 2021-02-11 01:22 | disposition home or self-care (01) ==
PROVIDERS: Emergency Provider Emergency Medicine
DX: J20.9 Acute bronchitis, unspecified (principal); Z20.822 Contact with and (suspected) exposure to COVID-19; Z88.0 Allergy status to penicillin; F17.210 Nicotine dependence, cigarettes, uncomplicated
CPT/HCPCS: 71046; 99282; C9803; U0003; U0005

== ENCOUNTER 2021-08-05 14:25 | Emergency (ER) | payer SELFPAY ==
[2021-08-05 15:00] VITALS: BP 133/80; PULSE 69; RESP 19; TEMP 36.8; O2SAT 99; BMI 44.7
--- NOTE | 2021-08-05 15:27 | PC.NURSE ---
PATIENT SENT TO ER PER Mary PRESCOTT APRN FOR FURTHER EVALUATION. REPORT GIVEN TO Bri JARAMILLO RN
[2021-08-05 15:28] VITALS: BP 109/61; PULSE 66; O2SAT 97
--- NOTE | 2021-08-05 15:28 | PC.NURSE ---
MYLES Gamino at BS
--- NOTE | 2021-08-05 15:32 | PC.NURSE ---
ED MD at
[2021-08-05 15:58] VITALS: BP 109/61; PULSE 65; RESP 18; O2SAT 97; BMI 44.6
--- NOTE | 2021-08-05 16:10 | HMH.EDEYEP ---
ED Disposition Clinical Impression: Allergic conjunctivitis, right eye Disposition: Home, Self-Care Condition on Discharge: Good Instructions: DI for Conjunctivitis Referrals: Provider,MD Reginaldo [Primary Care Provider] - Con Jang MD [Consulting Physician] - - Critical Care Critical Care Time: No Attestation: On 08/05/21, the high probability of a clinically significant, sudden or life threatening deterioration of the following system(s) required my full and direct attention, intervention and personal management. The time I documented below is in addition to time spent performing reported procedures but includes the following listed in this critical care notation. Medical Decision Making - Medical Records Medical records reviewed: Yes: I reviewed the patient's medical records. - Jm Inquiry Pt receiving controlled substance: No Vital Signs: 08/05/21 15:00 08/05/21 15:28 08/05/21 15:58 Temperature 98.2 F Temperature Source Oral Pulse Rate 66 Pulse Rate [Right Brachial] 69 65 Respiratory Rate 19 18 Blood Pressure 109/61 L Blood Pressure [Right Arm] 133/80 109/61 L Blood Pressure Mean [Right Arm] 97 77 Blood Pressure Source Automatic Cuff Blood Pressure Source [Right Arm] Automatic Cuff Blood Pressure Position Sitting Blood Pressure Position [Right Arm] Sitting 02 Sat by Pulse Oximetry 99 97 97 Oxygen Delivery Method Room Air Room Air Room Air Orders (Tests/Meds): ED MEDICATIONS Discontinued Medications Generic Name Dose Route Start Last Admin Trade Name Freq PRN Reason Stop Dose Admin Diphenhydramine HCl 25 mg 08/05/21 15:36 Diphenhydramine 25mg Capsule PO 08/05/21 15:37 ONCE ONE Prednisone 60 mg 08/05/21 15:36 Prednisone 20mg Tab PO 08/05/21 15:37 ONCE ONE Tetracaine HCl 1 ml 08/05/21 15:36 Tetracaine 0.5% Opth Arlene 15ml OP 08/05/21 15:37 ONCE ONE Medical Decision Narrative: 30-year-old male presented to the emergency department with some swelling of the right eye. Findings are consistent with allergic reaction. Patient is unaware of any recent contacts. I did perform Burt lamp examination. Is no foreign body or abrasion. Patient be discharged on a short course of topical antibiotic. He is to follow-up with ophthalmology in 48 hours. Given strict return precautions. Verbalized understanding. Eye Problem HPI - General Chief complaint: Eye Problems Stated complaint: swollen R eye pain Time Seen by Provider: 08/05/21 15:05 Mode of Arrival: Ambulatory Source of Information: Patient Limitations: No Limitations Description of Symptoms (Recalled from ER Triage Doc. by RN): pt to ed c/o right eye irritation. pt states he noticed his eye starting to swell x2 days ago. pt states he woke up today and his eye was swollen shut and fluid filled. pt reports it is not painful he just feels pressure. pt denies any injury to his eye. - History of Present Illness HPI Narrative: This is a 30-year-old male presented to the emergency department with some right swelling. Patient states that he woke up 2 days ago and noticed that his eye was little more swollen than the left eye. He denies any trauma to the eye. Has not had any other insults that he is aware of. Does not wear contacts. He states that over the last 2 days the swelling has progressed. Is located unilaterally in his right upper and lower eyelid. He is not having any pain in the area. No difficulty seeing other than some minor obstruction from the actual eyelid. When he lifts his eyelid open he is able to see fine. He denies any headache or change in vision. No focal weakness. No fevers or chills. No neck pain. No chest pain or shortness of breath. No abdominal pain or vomiting. - Related Data Previous Rx's Medication Instructions Recorded Azithromycin [Zithromax 250mg 250 mg PO DIRECTED #6 tab 02/11/21 tab] Allergies Allergy/AdvRe
[2021-08-05 16:23] VITALS: BP 116/79; PULSE 85; RESP 14; O2SAT 98
[2021-08-05 16:42] VITALS: BP 116/79; PULSE 85; RESP 14; TEMP 36.8; O2SAT 98
== END 2021-08-05 16:45 | disposition home or self-care (01) ==
LOC: UTC 14:30 → ER 15:22
PROVIDERS: Emergency Provider Emergency Medicine
DX: H10.11 Acute atopic conjunctivitis, right eye (principal); F17.210 Nicotine dependence, cigarettes, uncomplicated; Z88.0 Allergy status to penicillin
CPT/HCPCS: 99212; G0463

== ENCOUNTER 2021-10-17 18:01 | Emergency (ER) | payer SELFPAY ==
[2021-10-17 18:12] VITALS: BP 139/92; PULSE 88; RESP 16; TEMP 36.8; O2SAT 94; BMI 46.0
--- NOTE | 2021-10-17 18:19 | CT_ITS ---
PROCEDURE INFORMATION: Exam: CT Abdomen And Pelvis With Contrast Exam date and time: 10/17/2021 7:01 PM Age: 31 years old Clinical indication: Abdominal pain; Additional info: Abd pain TECHNIQUE: Imaging protocol: Computed tomography of the abdomen and pelvis with contrast. Radiation optimization: All CT scans at this facility use at least one of these dose optimization techniques: automated exposure control; mA and/or kV adjustment per patient size (includes targeted exams where dose is matched to clinical indication); or iterative reconstruction. Contrast material: ISOVUE; Contrast volume: 75 ml; Contrast route: IV; COMPARISON: CT ABDOMEN PELVIS W CON 09/02/2019 9:27 PM FINDINGS: Lungs: Subcentimeter calcified granuloma right middle lobe. Minimal dependent atelectasis and scarring. Heart: Tiny amount of air within the anterior pericardium is probably due to recent IV placement. There is no underlying evidence for infectious pericarditis and no history of recent trauma or surgery. Tiny amount of volume will likely not result in clinical symptomatology. Diaphragm: Sliding hiatal hernia. Liver: The liver is diffusely hypoattenuating and enlarged. No focal hepatic lesion is appreciated. Gallbladder and bile ducts: Gallbladder is contracted but otherwise unremarkable. No worrisome dilation of the biliary tree is appreciated. Pancreas: Normal. No ductal dilation. Spleen: Normal. No splenomegaly. Adrenal glands: Normal. No mass. Kidneys and ureters: Normal. No hydronephrosis. Stomach and bowel: Unremarkable. No obstruction. No mucosal thickening. Appendix: The appendix is not identified. There are no secondary signs of appendicitis. Intraperitoneal space: Unremarkable. No free air. No significant fluid collection. Vasculature: Unremarkable. No abdominal aortic aneurysm. Lymph nodes: Unremarkable. No enlarged lymph nodes. Urinary bladder: Unremarkable as visualized. Reproductive: Unremarkable as visualized. Bones/joints: Unremarkable. No acute fracture. Soft tissues: Unremarkable. IMPRESSION: 1. Sliding hiatal hernia. 2. Tiny amount of air within the anterior pericardium is probably due to recent IV placement. There is no additional underlying evidence for infectious pericarditis and no history of recent trauma or surgery. This tiny amount of volume of air will likely not result in clinical symptomatology. 3. Hepatic steatosis.
--- NOTE | 2021-10-17 18:42 | PC.NURSE ---
pt ambulatory to restroom without complications to provide UA
--- NOTE | 2021-10-17 18:47 | PC.NURSE ---
UA sent to lab
[2021-10-17 18:50] LABS: Microscopic, Urine URINE MICROSCOPIC (MICROSCOPIC)
[2021-10-17 18:55] LABS: Appearance,Urine CLEAR (Clear); Bilirubin,Urine Negative (Negative); Blood, Urine Negative (Negative); Color,Urine YELLOW (Yellow); Glucose,Urine (UA) Negative (Negative); Ketones,Urine Negative (Negative); Leukocyte Esterase,Urine Negative (Negative); Nitrate,Urine Negative (Negative); Protein,Urine Negative (Negative); Specific Gravity, Urine >= 1.030 (1.005-1.030); Urobilinogen,Urine 0.2 EU/dl (0.2)
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
--- NOTE | 2021-10-17 18:57 | PC.NURSE ---
PT GONE TO CT
--- NOTE | 2021-10-17 19:06 | PC.NURSE ---
WENT TO RAD AND RESTARTED IV NOW HAS A 20G R HAND
--- NOTE | 2021-10-17 19:11 | PC.NURSE ---
PT BACK FROM CT
[2021-10-17 19:15] LABS: Basophils # 0.1 K/mm3 (0-0.2); Basophils % 0.9 % (0.1-2.0); Eosinophils # 0.2 K/mm3 (0.0-0.4); Eosinophils % 2.3 % (0.1-12.0); Hematocrit 47.7 % (42.0-52.0); Hemoglobin 15.7 g/dL (14.1-18.0); Lymphocytes # 2.2 K/mm3 (0.7-4.5); Lymphocytes % 28.2 % (10-50); Mean Corpuscular Hemoglobin 31.3 pg (27.0-31.2); Mean Corpuscular Volume 94.9 fl (80-94); Mean Platelet Volume 9.5 fl (7.4-10.4); Monocytes # 0.6 K/mm3 (0.1-1.0); Monocytes % 7.4 % (1.7-9.3); Neutrophils # 4.7 K/mm3 (1.8-7.8); Neutrophils % 61.2 % (37.0-80.0); Platelet Count 268 K/mm3 (142-424); Red Blood Count 5.03 M/mm3 (4.60-6.20); Red Cell Distribution Width 13.3 % (11.5-17.5); White Blood Count 7.6 K/mm3 (4.8-10.8)
[2021-10-17 19:17] LABS: Alanine Aminotransferase 47 U/L (12-78); Albumin Level 4.1 g/dl (3.5-5.0); Albumin/Globulin Ratio 1.5 (1.1-1.8); Alkaline Phosphatase 89 U/L (38-126); Anion Gap 12.2 mEq/L (5-15); Aspartate Amino Transferase 36 U/L (17-59); Bilirubin,Total 0.4 mg/dl (0.2-1.3); Blood Urea Nitrogen 10 mg/dl (9-20); Carbon Dioxide 26 mmol/L (22.0-30.0); Chloride 107 mmol/L (98-107); Creatinine Clearance Estimated 145 mL/min (50-200); Estimated Glomerular Filt Rate 114 ml/min (>60); GFR (African American) 138 ML/MIN (>60); Globulin 2.8 g/dL (1.3-3.2); Glucose 105 mg/dl (74-100); Lipase 40 U/L (23-300); Potassium 4.2 mmoL/L (3.5-5.1); Sodium 141 mmol/L (136-145); Total Protein,Serum 6.9 g/dl (6.3-8.2)
--- NOTE | 2021-10-17 19:43 | HMH.EDGENADL ---
ED Disposition Clinical Impression: Right upper quadrant abdominal pain Disposition: Home, Self-Care Condition on Discharge: Fair Instructions: DI for Abdominal Pain-Adult, Fat-Restricted Diet, DI for General Gallbladder Conditions, DI for Biliary Colic Additional Instructions: Tylenol 3 as needed for pain. Protonix as prescribed. Follow-up with your primary care provider for further evaluation, recommend outpatient gallbladder ultrasound. Low-fat diet. Additional instructions for ABDOMINAL PAIN: See your physician as soon as possible for further evaluation. Return immediately if worsening abdominal pain, vomiting, shortness of breath, fever, vomiting of blood or abdominal distention. You are being provided with a list of physicians available for follow-up of your condition. Please call a physician on this list to arrange a follow-up appointment as soon as possible. Additional instructions for CONTROLLED SUBSTANCES: You have been prescribed a medication that is a controlled substance. Controlled substances include pain medications known as opiates and sedative nerve medications known as benzodiazepines. Tramadol, fioricet, and gabapentin are also controlled substances. Some common opiates include: Codeine (such as Tylenol #3) Hydrocodone (Vicodin, Lortab, Lorcet, Orogrande) Oxycodone (Percocet, Percodan, Oxycodone, Oxy IR) Some common benzodiazepines include: Diazepam (Valium) Lorazepam (Ativan) Alprazolam (Xanax) Clonazepam (Klonopin) Oxazepam (Serax) All of these controlled substances are highly addictive and frequently abused. Misuse can and frequently does lead to addiction as well as overdose and . Medication should be stored in a locked cabinet or other secure storage unit. Do not store the medication in a motor vehicle. Short term supplies, 3 days or less, are prescribed because of the highly addictive nature of the medication. Any of the controlled substance medication NOT taken should be disposed of properly and NOT SAVED. The recommended method of disposing of unused medications is: Place the medicines in a sealable plastic bag. If the medicine is a solid, crush it or add water to dissolve it. Add something undesirable (cat litter, coffee grounds, etc.) Dispose of sealed bag in household trash Do not flush or pour unused medicines down a sink or drain. Controlled substances should not be shared, given away or sold. Because of the addictive nature and frequent abuse, these medications are sometimes stolen. These medications should be kept in a safe place where they cannot be stolen. Do not keep them in your car or purse. Lost or stolen prescriptions for controlled substances WILL NOT BE REFILLED in this emergency department, regardless of whether a police report was filed. Prescriptions: Pantoprazole Sodium [Protonix 40mg tablet] 40 mg PO DAILY #15 tab Transmission Status: Pending to [id number] Referrals: Provider,Referral, [Primary Care Provider] - - Critical Care Critical Care Time: No Attestation: On 10/17/21, the high probability of a clinically significant, sudden or life threatening deterioration of the following system(s) required my full and direct attention, intervention and personal management. The time I documented below is in addition to time spent performing reported procedures but includes the following listed in this critical care notation. Medical Decision Making - Jm Inquiry Pt receiving controlled substance: Yes Jm was queried for this patient: Yes Risks and benefits of using a controlled substance: were discussed with pt by me Vital Signs: 10/17/21 18:12 Temperature 98.3 F Temperature Source Oral Pulse Rate [Left Radial] 88 Respiratory Rate 16 Blood Pressure [Right Arm] 139/92 H Blood Pressure Mean [Right Arm] 107 02 Sat by Pulse Oximetry 94 L Oxygen Delivery Method Room Air
[2021-10-17 20:14] VITALS: BP 134/75; PULSE 80; RESP 18; TEMP 36.8; O2SAT 96
== END 2021-10-17 20:18 | disposition home or self-care (01) ==
PROVIDERS: Emergency Provider Emergency Medicine
DX: R10.11 Right upper quadrant pain (principal); Z79.899 Other long term (current) drug therapy; Z88.0 Allergy status to penicillin; Z88.1 Allergy status to other antibiotic agents; Z72.0 Tobacco use
CPT/HCPCS: 74177; 80053; 81001; 83690; 85025; 96374; 96375; 99284; Q9967

== ENCOUNTER 2022-09-19 07:16 | Emergency (ER) | payer SELFPAY ==
[2022-09-19 07:16] VITALS: BP 139/92; PULSE 81; RESP 18; TEMP 36.5; O2SAT 99; BMI 46.0
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
[2022-09-19 08:51] VITALS: BP 109/82; PULSE 63; RESP 18; TEMP 36.5; O2SAT 98
== END 2022-09-19 08:52 | disposition home or self-care (01) ==
PROVIDERS: Emergency Provider Emergency Medicine
DX: M65.241 Calcific tendinitis, right hand (principal); F17.210 Nicotine dependence, cigarettes, uncomplicated; E66.01 Morbid (severe) obesity due to excess calories
CPT/HCPCS: 96372; 99283; 99284

== ENCOUNTER → 2022-10-25 23:18 | Outpatient (CLI) | payer OTHER, SELFPAY ==
[2022-10-25 18:01] LABS: Basophils # 0.1 K/mm3 (0-0.2); Basophils % 0.7 % (0.1-2.0); Eosinophils # 0.1 K/mm3 (0.0-0.4); Eosinophils % 1.8 % (0.1-12.0); Hematocrit 50.4 % (42.0-52.0); Hemoglobin 16.1 g/dL (14.1-18.0); Lymphocytes # 2.2 K/mm3 (0.7-4.5); Mean Corpuscular HGB Conc 31.9 g/dL (31.8-35.4); Mean Corpuscular Hemoglobin 29.2 pg (27.0-31.2); Mean Corpuscular Volume 91.5 fl (80-94); Mean Platelet Volume 9.1 fl (7.4-10.4); Monocytes # 0.5 K/mm3 (0.1-1.0); Monocytes % 6.7 % (1.7-9.3); Neutrophils # 4.5 K/mm3 (1.8-7.8); Neutrophils % 60.9 % (37.0-80.0); Platelet Count 244 K/mm3 (142-424); Red Cell Distribution Width 13.1 % (11.5-17.5); White Blood Count 7.4 K/mm3 (4.8-10.8)
[2022-10-25 18:13] LABS: Hemoglobin A1C 5.3 % (4.0-6.0)
[2022-10-25 18:15] LABS: Alanine Aminotransferase 43 U/L (12-78); Albumin Level 4.4 g/dl (3.5-5.0); Albumin/Globulin Ratio 1.6 (1.1-1.8); Alkaline Phosphatase 94 U/L (38-126); Anion Gap 13.4 mEq/L (5-15); Aspartate Amino Transferase 29 U/L (17-59); Bilirubin,Total 0.6 mg/dl (0.2-1.3); Blood Urea Nitrogen 14 mg/dl (9-20); Calcium 9.5 mg/dl (8.4-10.2); Carbon Dioxide 25 mmol/L (22.0-30.0); Chloride 105 mmol/L (98-107); Chol/HDL Ratio 5.2 (1-3.5); Cholesterol 233 mg/dl (140-200); Estimated Glomerular Filt Rate 132 ml/min (>60); GFR (African American) 160 ML/MIN (>60); Globulin 2.7 g/dL (1.3-3.2); Glucose 80 mg/dl (74-100); HDL Cholesterol 45 mg/dl (40-60); Potassium 4.4 mmoL/L (3.5-5.1); Sodium 139 mmol/L (136-145); Total Protein,Serum 7.1 g/dl (6.3-8.2); Triglycerides 314 mg/dl (30-150); VLDL Cholesterol 63 mg/dL (0-40)
[2022-10-25 18:28] LABS: Direct LDL Cholesterol 132.86 mg/dL (100-129)
[2022-10-25 18:33] LABS: 25-OH Vitamin D, Total 26.3 ng/mL (30-100)
[2022-10-25 18:46] LABS: Thyroid Stimulating Hormone 0.74 uIU/mL (0.465-4.68)
== END ==
PROVIDERS: PCP Nurse Practitioner Family; Visit Provider Nurse Practitioner Family
DX: E55.9 Vitamin D deficiency, unspecified (principal); E66.01 Morbid (severe) obesity due to excess calories; Z68.43 Body mass index [BMI] 50.0-59.9, adult; Z79.899 Other long term (current) drug therapy
CPT/HCPCS: 80053; 80061; 82306; 83036; 84443; 85025

== ENCOUNTER 2022-12-10 13:48 | Emergency (ER) | payer OTHER, SELFPAY ==
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
[2022-12-10 14:15] VITALS: BP 134/75; PULSE 83; RESP 18; TEMP 37.1; O2SAT 95; BMI 53.3
--- NOTE | 2022-12-10 14:18 | XR_ITS ---
FINAL REPORT TECHNIQUE: Chest PA & Lateral CLINICAL HISTORY: cough COMPARISON: 02/2021 FINDINGS: 2 views of the chest were performed. The heart size is normal. The mediastinum is within normal limits. There is no acute cardiopulmonary process. There are no pleural effusions. There is no pneumothorax. The bony thorax appears intact. IMPRESSION: No acute cardiopulmonary process. Reviewed, Interpreted and Dictated by Ty Melendez III, MD Transcribed by Tavon Garcia Authenticated and [facility]
[2022-12-10 14:32] LABS: UTC Strep Screen (Rapid) Negative (Negative)
[2022-12-10 15:33] VITALS: BP 134/75; PULSE 83; RESP 18; TEMP 37.1; O2SAT 95
== END 2022-12-10 15:20 | disposition home or self-care (01) ==
PROVIDERS: Emergency Provider Nurse Practitioner Family; PCP Nurse Practitioner Family
DX: J20.9 Acute bronchitis, unspecified (principal); J01.90 Acute sinusitis, unspecified; R06.02 Shortness of breath; F17.210 Nicotine dependence, cigarettes, uncomplicated; E66.01 Morbid (severe) obesity due to excess calories; Z68.43 Body mass index [BMI] 50.0-59.9, adult
CPT/HCPCS: 71046; 87880; 99204; 99212; G0463

== ENCOUNTER 2023-08-13 12:50 | Emergency (ER) | payer SELFPAY ==
[2023-08-13 12:52] VITALS: BP 129/100; PULSE 70; RESP 20; TEMP 36.9; O2SAT 99; BMI 51.5
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
[2023-08-13] MEDS: TET/DIPHTH/PERT-ADULT 0.5ML SYRINGE 0.5 ML IM (13:55)
[2023-08-13 14:05] VITALS: BP 132/96; PULSE 73; O2SAT 97
[2023-08-13] MEDS: ACETAMINOPHEN 500MG TAB 1000 MG PO (14:06)
[2023-08-13] MEDS: IBUPROFEN 600 MG TABLET PO (14:06)
[2023-08-13 14:30] VITALS: BP 120/86; PULSE 67; O2SAT 99
[2023-08-13 15:49] VITALS: BP 144/80; PULSE 77; RESP 19; TEMP 36.9; O2SAT 98
== END 2023-08-13 16:00 | disposition home or self-care (01) ==
PROVIDERS: Emergency Provider Emergency Medicine; PCP Internal Medicine
DX: S92.344A Nondisplaced fracture of fourth metatarsal bone, right foot, initial encounter for closed fracture (principal); S92.334A Nondisplaced fracture of third metatarsal bone, right foot, initial encounter for closed fracture; M79.671 Pain in right foot; M25.571 Pain in right ankle and joints of right foot; F17.210 Nicotine dependence, cigarettes, uncomplicated; V29.498A Other motorcycle driver injured in collision with other motor vehicles in traffic accident, initial encounter; Y92.410 Unspecified street and highway as the place of occurrence of the external cause; Z23 Encounter for immunization
CPT/HCPCS: 73600; 73630; 90471; 90715; 99283

== ENCOUNTER 2024-11-17 08:55 | Emergency (ER) | payer SELFPAY ==
[2024-11-17 09:04] VITALS: BP 142/98; PULSE 99; RESP 16; TEMP 36.8; O2SAT 100; BMI 46.4
[2024-11-17 09:31] VITALS: BP 104/87; PULSE 60; O2SAT 95
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
[2024-11-17 11:14] VITALS: BP 140/84; PULSE 74; RESP 15; TEMP 36.7; O2SAT 99
== END 2024-11-17 11:15 | disposition home or self-care (01) ==
PROVIDERS: Emergency Provider Student in an Organized Health Care Education/Training Program; PCP Family Medicine
DX: S29.9XXA Unspecified injury of thorax, initial encounter (principal); S46.912A Strain of unspecified muscle, fascia and tendon at shoulder and upper arm level, left arm, initial encounter; V86.59XA Driver of other special all-terrain or other off-road motor vehicle injured in nontraffic accident, initial encounter
CPT/HCPCS: 71250; 73030; 99284